=== PATIENT | male | born 1960 | race Caucasian/White ===

== ENCOUNTER → 2017-01-18 | Outpatient (CLI) | payer MEDICARE ==
[~2017-01-18] MED LIST: ASPIRIN 81MG TA81 MG PO; AUGMENTIN1 TA2 PO; DULOXETINE 30MG30 MG PO; LISINOPRIL 5MG T5 MG PO; LORTAB 500 MG-11 TAB PO; LOVAZA1 GM PO; MELOXICAM15 MG PO; NADOLOL 20 MG T20 MG PO; NAPROXEN SODIU500 MG PO; NEURONTIN100 MG PO; OMEPRAZOLE20 M1 PO; PREDNISONE20 MG PO; ROPINIROLE HYDRO1 MG PO; SIMVASTATIN20 MG PO; TAMSULOSIN HYD0.4 MG PO; TRAZODONE150 MG PO; ULTRAM50 MG PO; VALIUM 5MG TABLE5 MG PO; VITAMIN D1000 IU PO; VITAMIN D50000 I1 PO
--- NOTE | 2017-01-18 10:30 | RADIOLOGY REPORT PS360 ---
EXAM: Barium swallow/esophagram. INDICATION: Reflux, dysphasia ORDERING PHYSICIAN: MAYELA ORELLANA MD PATIENT AGE: 56 years COMPARISON: None TECHNIQUE: In the upright position the patient was observed to swallow barium in both the AP and lateral view. The cervical esophagus was examined under fluoroscopy with images obtained. The patient was then placed prone in the right anterior oblique position and was observed to swallow barium with Valsalva technique . FLUOROSCOPY TIME: 1 minute and 3 seconds FINDINGS: There was no evidence of aspiration. There was normal peristalsis. No filling defects or mucosal abnormalities. No masses or strictures. There is a small sliding hiatal hernia. Reflux was not demonstrated during the exam. No constricting lesion. IMPRESSION: Small hiatal hernia otherwise negative upper GI
== END ==
LOC: RAD 01-14 09:00
DX: K21.9 Gastro-esophageal reflux disease without esophagitis (principal); R13.10 Dysphagia, unspecified

== ENCOUNTER 2017-02-03 08:48 | Day surgery (SDC) | payer MEDICARE ==
--- NOTE | 2017-02-03 09:53 | Operative Note ---
Surgeon/Diagnoses Surgeon/Lithographic Press Operator Apprentice(s) Date of procedure: 02/03/17 Surgeon: MD Se Jain Diagnoses Pre-op diagnosis: Dysphagia Gastroesophageal reflux Sliding hiatal hernia Post-op diagnosis Same as preoperative diagnoses, with the addition of following: Moderate streaking gastritis Antral diverticulum (less likely ulceration) Shallow gastric body ulceration Procedure Procedure Procedure: Esophagogastroduodenoscopy with biopsy Indications: FARZANEH FAUSTIN is a 56 year-old Male with a history of dysphagia and gastroesophageal reflux. Recent barium swallow revealed an apparent small sliding hiatal hernia, but no other significant abnormality. Findings: Fairly significant sliding hiatal hernia Moderate patchy gastritis Shallow gastric body ulcerations (2) Apparent antral diverticulum (less likely ulceration) Procedure Description: After informed consent was obtained the patient was taken to the endoscopy suite. IV sedation ensued after he was transferred to the LEFT lateral decubitus position. The gastroscope was advanced. The stomach was entered. Retroflexion revealed a fairly significant sliding hiatal hernia. Streaking gastritis was noted. 2 tiny shallow ulcerations in the distal gastric body were seen. What appeared to be a small diverticulum in the antrum was noted. Multiple biopsies around the margin were obtained. The pylorus was intubated. The duodenal mucosa appeared relatively normal. Gastroscope was carefully removed and the patient was transferred to recovery. EBL (ml): 1 Anesthesia: IV sedation with 7 mg of Versed and 100 g of fentanyl Complications: No immediate Specimens: Gastric antrum (margin of apparent diverticulum) Disposition Disposition: Stable to recovery from where he will be discharged home. He will follow up in one week. His proton pump inhibitor dose will be increased to twice daily and he will begin Carafate. at [id number]
[2017-02-03 11:57] VITALS: BP 120/75
== END 2017-02-03 10:55 | disposition home or self-care (01) ==
LOC: SDC 08:48
PROVIDERS: Surgery
PROC: 0DB78ZX Excision of Stomach, Pylorus, Via Natural or Artificial Opening Endoscopic, Diagnostic (ICD-10-PCS; principal; 2017-02-03 09:30)
DX: K21.9 Gastro-esophageal reflux disease without esophagitis (principal); K44.9 Diaphragmatic hernia without obstruction or gangrene; K29.70 Gastritis, unspecified, without bleeding; K25.9 Gastric ulcer, unspecified as acute or chronic, without hemorrhage or perforation